=== PATIENT | male | born 1940 | race Caucasian/White ===

== ENCOUNTER → 2016-12-22 | Outpatient (CLI) | payer BC, MEDICARE ==
[~2016-12-22] MED LIST: AMLO10TA4 PO; CIPR500T87 PO; FOLI-17 PO; HYDR-3237 PO; HYDR200T PO; LOSA100T6 PO; METH2.5T PO; METR500T PO; MULT-208 PO
== END | disposition home or self-care (01) ==
LOC: ROC 09:00
PROVIDERS: ATTEND Radiology Radiation Oncology
DX: C34.11 Malignant neoplasm of upper lobe, right bronchus or lung (principal)
CPT/HCPCS: 99212; G0463

== ENCOUNTER → 2017-01-05 | Outpatient (CLI) | payer BC, MEDICARE | END | disposition home or self-care (01) | LOC: EDSTATUS 12-23 15:28 → ROC 07:58 | PROVIDERS: ATTEND Radiology Radiation Oncology | DX: C34.11 Malignant neoplasm of upper lobe, right bronchus or lung (principal); C81.20 Mixed cellularity Hodgkin lymphoma, unspecified site; L93.1 Subacute cutaneous lupus erythematosus; Z92.3 Personal history of irradiation; Z88.8 Allergy status to other drugs, medicaments and biological substances | CPT/HCPCS: 99213; G0463 ==

== ENCOUNTER → 2017-02-01 | Outpatient (CLI) | payer BC, MEDICARE | END | disposition home or self-care (01) | LOC: ROC 12:32 | PROVIDERS: ATTEND Radiology Radiation Oncology | DX: C34.11 Malignant neoplasm of upper lobe, right bronchus or lung (principal) | CPT/HCPCS: 99212; G0463 ==